=== PATIENT | male | born 1955 | race Caucasian/White ===

== ENCOUNTER 2024-12-09 06:38 | Day surgery (SDC) | payer MEDICARE, OTHER ==
[2024-12-09] MEDS ORDERED: Lidocaine 1% PF 2 ML SDV IV ONE (06:39)
[2024-12-09] MEDS ORDERED: Midazolam 1 MG/ML 2 ML SDV IV ONE (06:39)
[2024-12-09] MEDS ORDERED: Propofol 200 MG/20 ML SDV IV ONE (06:39)
[2024-12-09] MEDS ORDERED: Sodium Chloride 0.9% 10 ML Syringe FLUSH PRN (07:00)
[2024-12-09] MEDS: Lactated Ringers 1,000 ML IV SCH (07:44)
[2024-12-09] MEDS: Simethicone Drops 40 MG/0.6 ML 30 ML Bottle ONE (09:02)
[2024-12-11 04:57] LABS: ADENOVIRUS 40/41 PCR Not Detected; ASTROVIRUS PCR Not Detected; CAMPYLOBACTER PCR Not Detected; CRYPTOSPORIDIUM PCR Not Detected; CYCLOSPORA CAYETANENSIS PCR Not Detected; ENTAMOEBA HISTOLYTICA PCR Not Detected; ENTEROAGGREGATIVE E. COLI PCR Not Detected; ENTEROPATHOGENIC E. COLI PCR Not Detected; ENTEROTOXIGENIC E. COLI PCR Not Detected; GIARDIA LAMBLIA PCR Not Detected; NOROVIRUS GI/GII PCR Not Detected; PLESIOMONAS SHIGELLOIDES PCR Not Detected; ROTAVIRUS A PCR Not Detected; SALMONELLA PCR Not Detected; SAPOVIRUS PCR Not Detected; SHIG/ENTEROINVASIVE E COLI PCR Not Detected; SHIGA TOXIN-PRODUC E. COLI PCR Not Detected; VIBRIO CHOLERAE PCR Not Detected; VIBRIO PCR Not Detected; YERSINIA ENTEROCOLITICA PCR Not Detected
[2024-12-11 05:22] LABS: ADENOVIRUS 40/41 PCR Not Detected; ASTROVIRUS PCR Not Detected; CAMPYLOBACTER PCR Not Detected; CRYPTOSPORIDIUM PCR Not Detected; CYCLOSPORA CAYETANENSIS PCR Not Detected; ENTAMOEBA HISTOLYTICA PCR Not Detected; ENTEROAGGREGATIVE E. COLI PCR Not Detected; ENTEROPATHOGENIC E. COLI PCR Not Detected; ENTEROTOXIGENIC E. COLI PCR Not Detected; GIARDIA LAMBLIA PCR Not Detected; NOROVIRUS GI/GII PCR Not Detected; PLESIOMONAS SHIGELLOIDES PCR Not Detected; ROTAVIRUS A PCR Not Detected; SALMONELLA PCR Not Detected; SAPOVIRUS PCR Not Detected; SHIG/ENTEROINVASIVE E COLI PCR Not Detected; SHIGA TOXIN-PRODUC E. COLI PCR Not Detected; VIBRIO CHOLERAE PCR Not Detected; VIBRIO PCR Not Detected; YERSINIA ENTEROCOLITICA PCR Not Detected
[2024-12-11 21:39] LABS: LACTOFERRIN,FECAL BY ELISA Negative (Negative)
[2024-12-11 21:40] LABS: LACTOFERRIN,FECAL BY ELISA Negative (Negative)
== END 2024-12-09 10:52 | disposition home or self-care (01) ==
LOC: FB.SDS 06:38
PROVIDERS: ATTEND Surgery
DX: Z12.11 Encounter for screening for malignant neoplasm of colon (principal); D12.2 Benign neoplasm of ascending colon; D12.7 Benign neoplasm of rectosigmoid junction; D12.6 Benign neoplasm of colon, unspecified; K40.20 Bilateral inguinal hernia, without obstruction or gangrene, not specified as recurrent; K57.30 Diverticulosis of large intestine without perforation or abscess without bleeding; Z80.0 Family history of malignant neoplasm of digestive organs; I10 Essential (primary) hypertension; E66.9 Obesity, unspecified; Z68.29 Body mass index [BMI] 29.0-29.9, adult; Z79.899 Other long term (current) drug therapy
CPT/HCPCS: 00811; 45380; 45381; 45384; 45385; 83630; 87507; 88305; A9270; J2003; J2250; J2704; J7120